=== PATIENT | male | born 1990 | race African-American/Black ===

== ENCOUNTER 2020-01-06 11:44 | Emergency (ER) | payer SELFPAY ==
[2020-01-06 11:47] VITALS: BP 125/74; PULSE 70; RESP 17; TEMP 36.8; O2SAT 100; BMI 30.2
--- NOTE | 2020-01-06 12:03 | ED.DCSUM_ITS ---
- ER Visit Summary Date of Service: 01/06/20 Chief Complaint: Upper dental pain and infection History of Present Illness: The patient is a 29 M patient in past medical or surgical history. States he chipped his left upper third molar recently has had pain. He also thinks he has an abscess on the right upper tooth. Denies any facial swelling. No fever. Currently has no primary care physician or dentist. He is recently moved from [place] to [place] and now currently working here in [place]. Physical Examination: Well-appearing 29-year-old male. Vital signs stable afebrile. H EENT exam no facial swelling. Left upper third molar is a chipped tooth. There is no gingival swelling or abscess. The right upper premolar there is a very small swelling along the gumline consistent with an early abscess. Nothing to be drained. Otherwise his dentition is in good shape. He can open and close his mouth in any difficulty. Posterior pharynx and the floor of his mouth is unremarkable. Neck nontender. No lymphadenopathy. Lungs clear to auscultation bilaterally. Heart regular rate and rhythm no murmur. Abdomen soft nontender. Patient is moving all 4 extremities no edema. Test Results: None Emergency Department Course and Treatment: Dental pain secondary to a chipped tooth and a right upper premolar gingival abscess. Treatment Plan: Pen-Vee K 4 times daily. Tylenol Motrin for pain. Follow-up with a local dentist. Disposition: Discharge Impression: Acute dental pain secondary to left upper molar fracture and right upper premolar abscess This note was generated with [employer] dictation software. It may contain incorrect words, spelling, and punctuation that were not noted in review of the chart prior to signing ED Disposition - Plan for ED Patient: Referrals: Care Physician,No Primary [Primary Care Provider] -
--- NOTE | 2020-01-06 12:05 | ED.DEP ---
ED Disposition - Plan for ED Patient: Disposition: Home or Assisted Living Instructions: Dental Abscess, ED Tooth Pain Prescriptions: Penicillin Vk [Pen-Vee K , V-Cillin K] 250 mg PO 4X/DAY #30 tab Prescription Printed Referrals: [facility] [NON-STAFF] - As soon as possible Additional Instructions: Tylenol and/or Motrin for pain. Pen-Vee K 4 times a day as antibiotic for the dental abscess. Warm salt water gargling. Follow-up with a local dentist. You can try the [facility] across the street from the hospital or call into the local dentists in the phone book.
== END 2020-01-06 12:22 | disposition home or self-care (01) ==
LOC: ED 12:18
PROVIDERS: Emergency Provider Emergency Medicine
DX: K08.89 Other specified disorders of teeth and supporting structures (principal); F17.200 Nicotine dependence, unspecified, uncomplicated
CPT/HCPCS: 99282